=== PATIENT | female | born 1985 ===

== ENCOUNTER 2016-09-19 08:59 | Emergency (ER) | payer OTHER ==
[2016-09-19 09:06] VITALS: O2SAT 99
[2016-09-19] MEDS ORDERED: Sodium Chloride 0.9% 500 ML IV ONE (09:28)
[2016-09-19 10:18] LABS: CHLORIDE 100 mmol/L (98-107); SODIUM 137 mmol/L (132-148)
[2016-09-19 10:19] LABS: POTASSIUM 3.6 mmol/L (3.6-5.2)
[2016-09-19 10:21] LABS: ALKALINE PHOSPHATASE 97 U/L (38-126); ALT/SGPT 35 U/L (9-52); AST/SGOT 21 U/L (14-36); BILIRUBIN,TOTAL 0.6 mg/dL (0.2-1.3); BLOOD UREA NITROGEN 10 mg/dL (7-17); CARBON DIOXIDE 21 mmol/L (22-30); GFR AFRICAN-AMERICAN > 60; TOTAL PROTEIN 7.5 g/dL (6.3-8.3); URINE BACTERIA RARE (<OCC); URINE BILIRUBIN NEGATIVE (NEGATIVE); URINE BLOOD 3+ (NEGATIVE); URINE COLOR Yellow (YELLOW); URINE GLUCOSE (UA) NORMAL (Normal); URINE KETONE NEGATIVE (NEGATIVE); URINE LEUKOCYTE ESTERASE TRACE Leu/uL (Negative); URINE PROTEIN 1+ mg/dL (NEGATIVE); WBC URINE 4 /hpf (0-5)
[2016-09-19 10:22] LABS: CALCIUM 9.1 mg/dl (8.6-10.4); GLUCOSE,RANDOM 120 mg/dL (65-105)
[2016-09-19 10:25] LABS: RBC URINE 31 /hpf (0-3)
[2016-09-19 10:26] LABS: BASO # 0.1 K/uL (0.0-0.2); BASO % 0.9 % (0.0-2.0); EOS # 0.3 K/uL (0.0-0.7); EOS % 3.1 % (0.0-4.0); HEMATOCRIT 38.4 % (34.0-47.0); LYMPH % 19.4 % (20.0-40.0); MEAN CELL VOLUME 87.3 fL (81.0-99.0); MEAN CORPUSCULAR HEMOGLOBIN 30.2 pg (27.0-31.0); MEAN CORPUSCULAR HGB CONC 34.6 g/dL (33.0-37.0); MONO # 0.6 K/uL (0.0-0.8); MONO % 5.8 % (0.0-10.0); RED CELL DISTRIBUTION WIDTH 13.1 % (11.5-14.5); WHITE BLOOD COUNT 10.5 K/uL (4.8-10.8)
--- NOTE | 2016-09-19 10:34 | C.PDOC ---
History Of Present Illness 30 year old female presents to the emergency department with complaints of vaginal spotting for three weeks with blood clots noticed today which prompted visit. Patient states she went to the clinic three days ago and had a positive test. She was 4 para 2. Yesterday she began to feel abdominal pain. Patient denies any nausea, vomiting, fever, or diarrhea. Time Seen by Provider: 09/19/16 09:15 Chief Complaint (Nursing): Female Genitourinary History Per: Patient History/Exam Limitations: no limitations Onset/Duration Of Symptoms: Hrs (of vaginal blood clots), Days (one day of abdominal pain ), Persistent (3 weeks of spotting) Current Symptoms Are (Timing): Still Present Quality Of Discomfort: "Pain" Associated Symptoms: denies: Fever, Chills, Nausea, Vomiting, Diarrhea Recent travel outside of the [place]: No Abnormal Vaginal Bleeding: Yes Last Menstral Period: unknown : 4 Para: 2 Past Medical History Reviewed: Historical Data, Nursing Documentation, Vital Signs Vital Signs: Last Vital Signs Temp 98.4 F 09/19/16 11:36 Pulse 85 09/19/16 11:36 Resp 20 09/19/16 11:36 BP 109/74 09/19/16 11:36 Pulse Ox 99 09/19/16 12:53 - Medical History PMH: Hyperthyroidism Family History: States: Unknown Family Hx - Social History Hx Alcohol Use: No Hx Substance Use: No - Immunization History Hx Tetanus Toxoid Vaccination: No Hx Influenza Vaccination: No Hx Pneumococcal Vaccination: No Review Of Systems Constitutional: Negative for: Fever, Chills Cardiovascular: Negative for: Chest Pain Respiratory: Negative for: Shortness of Breath Gastrointestinal: Positive for: Abdominal Pain. Negative for: Nausea, Vomiting , Diarrhea Genitourinary: Positive for: Vaginal Bleeding Physical Exam - Physical Exam Appears: Non-toxic, No Acute Distress Skin: Warm, Dry Head: Atraumatic, Normacephalic Eye(s): bilateral: Normal Inspection, EOMI Nose: Normal Oral Mucosa: Moist Neck: Supple Chest: Symmetrical Respiratory: No Accessory Muscle Use Gastrointestinal/Abdominal: Soft, Tenderness (suprapubic tenderness), No Distention, No Guarding, No Rebound Neurological/Psych: Oriented x3, Normal Speech ED Course And Treatment - Laboratory Results Result Diagrams: 09/19/16 09:41 09/19/16 09:41 O2 Sat by Pulse Oximetry: 99 (room air ) Progress Note: PT refused pain medication. Upon re-evaluation patient is resting comfortably, abdomen remains soft, and patient is tolerating PO. Results were told to the pt and junior systems analyst used for understanding. Patient will be discharged home and follow up with OB or with the emergency department in 3 days. Disposition - Disposition Referrals: [facility] [Outside] Disposition: HOME/ ROUTINE Disposition Time: 11:28 Condition: STABLE Additional Instructions: Follow up with your OB/ER 3-4 days for re-evaluation. Vaya a manzano mdico o la clnica en 2-5 akbar sin falta, para mas evaluacin. Volver a la negra de emergencia en cualquier momento si los sntomas persisten o empeoran. Prescriptions: Multivit/Folic Acid/I [ Plus] 1 tab PO DAILY #30 tab Instructions: Threatened Miscarriage (ED) Forms: Draft (Indonesian) Print Language: CHILEAN - Clinical Impression Clinical Impression: Threatened miscarriage - Scribe Statement The provider has reviewed the documentation as recorded by the Scribe Kianna Tony All medical record entries made by the Scribe were at my direction and personally dictated by me. I have reviewed the chart and agree that the record accurately reflects my personal performance of the history, physical exam, medical decision making, and the department course for this patient. I have also personally directed, reviewed, and agree with the discharge instructions and disposition.
--- NOTE | 2016-09-19 11:20 | US ---
PROCEDURE: OB Pelvic Ultrasound HISTORY: bleeding COMPARISON: None available. FINDINGS: UTERUS: Gestational sac: Twin intrauterine gestation. Twin A: Gestational sac measures 1.29 cm corresponding to 5 weeks and 3 days of gestational age. Yolk sac is not visualized. No pole is identified. Twin B: Gestational sac measures corresponding to 5 weeks and 6 days of gestational age. CRL measures 0.75 corresponding to 6 weeks and 5 days of gestational age. Heart rate: 110 bpm. age (Ultrasound estimated): [place]-gestational hemorrhage: There is a small subchorionic hemorrhage measuring 7 x 9 x 9 mm in Twin B. Date of delivery (Ultrasound estimated) : 05/13/2017 Uterus measures 11.1 x 5.8 x 7.7 cm. CERVIX: Long and closed. No cervical abnormality seen. RIGHT OVARY: Measures 3.2 x 2.3 x 2.4 cm. No mass lesion. Normal flow. LEFT OVARY: Measures 3.4 x 3.0 x 3.1 cm. No solid mass. Normal flow. FREE FLUID: None. OTHER FINDINGS: None IMPRESSION: 1. Twin intrauterine gestation. No pole or yolk sac is identified in the Twin A gestational sac. Clinical correlation and imaging follow-up is advised. 2. Twin B: Gestational age of 5 weeks and 6 days. heart rate is 110 beats per minute. Estimated date of delivery by ultrasound is 05/13/2017. Small subcentimeter subchorionic hemorrhage.
[2016-09-19 11:38] VITALS: BP 109/74; PULSE 85; RESP 20; TEMP 98.4
== END 2016-09-19 11:36 | disposition home or self-care (01) ==
LOC: C.ER 08:59
DX: O20.0 Threatened abortion (principal)